=== PATIENT | male | born 1940 | race Caucasian/White ===

== ENCOUNTER 2016-11-28 13:39 | Emergency (ER) | payer MEDICARE ==
--- NOTE | 2016-12-03 19:07 | ER ---
ADMIT: 11/28/2016 [place]/LOC: [place] [facility] [place]#: [id number] [facility] [place], [place] [id number] BITA LANDEROS [address] [place] [id number] Emergency Room Report SEX: M AGE: 75 : 1940 DATE: 11/28/2016 HISTORY OF PRESENT ILLNESS: The patient is a 75-year-old male with past medical history of BPH, hypertension, anemia, diskitis, psoas abscess, who is taking daptomycin and meropenem at the moment through the PICC line, came to the ER with chief complaint of mildly increased altered mental status. Per family at bedside, the patient is more generally weak, and since the admission to the hospital and the ICU for the last few weeks, the patient was confused per family, but they believe in the last 2 to 3 days the confusion mildly increased. The patient was afebrile in the ER with temperature of 99.4, respiratory rate of 14, heart rate was 102, which decreased to 80 after the 5 minutes rechecking to 84, and blood pressure is 137/78, the patient was awake answering the question, cooperative, but is mildly confused, is oriented to person and situation, but is not oriented to time and place, I did not see any signs of trauma. The patient denied any fall, the patient's speech is not very understandable, but per family, he has been like this since admission to the hospital and ICU, and for the last few weeks, he has been like this. The patient moves all extremities and has no facial droop, the patient denies any pain, headaches, neck pain, neck stiffness, photophobia, visual changes, chest pain, shortness of breath, or abdominal pain. The patient has chronic back pain. PHYSICAL EXAMINATION: HEAD AND NECK: Conjunctivae are not pale, pupils are 3 mm, reactive to light bilaterally. Normal extraocular movements. NEUROLOGIC: Motor and sensory and cerebellar tests are grossly normal, and cranial nerves are also grossly normal. CHEST: Clear bilaterally. HEART: Normal heart sounds without any murmurs or gallops. ABDOMEN: Soft, nontender. EXTREMITIES: There is no swelling or tenderness. BACK: I checked the back looking for any tenderness in midline. I did not see any tenderness or fluctuations. GENITOURINARY: The patient also has no tenderness or swelling in the genitalia, testicles. Followup CT of the brain was negative for any acute changes, CBC showed white BC of 5.7 with hemoglobin of 9.6, ammonia level of 23, sodium was 139 with potassium of 3.9, creatinine was 0.9 with a glucose of 126. Urine was ADMIT: 11/28/2016 RM/LOC: [facility] MR#: [id number] [facility] [place] [id number] BITA LANDEROS [facility] [address] [place] [address] Emergency Room Report SEX: M AGE: 75 : 1940 positive for 32 wbc and 1 rbc, with the diagnosis of UTI, complicated, as the patient is male, has comorbidities and is already on 2 antibiotics daptomycin and meropenem, the patient was planned for admission. At this stage, I do not see the emergent urge to do the lumbar puncture knowing that the patient has no fever and no photophobia and no stiff neck, but it could be later on considered if the patient develops any new symptoms. The patient was started on ceftriaxone IV because I was not sure if the patient got dosage of antibiotics of today. The patient's family, they want the patient to be transferred to [place] and be followed up, and they are very happy of the care they had in [facility]. [facility] was contacted with a diagnosis of complicated UTI, chronic altered mental status. The patient was admitted to [facility] and was transferred there. Rebel Resendez MD/ carole JOB #: [id number] CC: Len Rosales MD, Attending Physician [facility] Physician, Family Physician
[2017-01-08] MEDS ORDERED: CALTRATE-600 W600 MG PO (11:07)
[2017-01-08] MEDS ORDERED: ASA CHILDREN'S81 MG PO (11:07)
[2017-01-08] MEDS ORDERED: COZAAR DPS50 MG PO (11:07)
[2017-01-08] MEDS ORDERED: FOLVITE-DPS1 MG PO (11:08)
[2017-01-08] MEDS ORDERED: DESYREL-DPS50 MG PO (11:08)
[2017-01-08] MEDS ORDERED: FEOSOL-DPS325 MG PO (11:08)
[2017-01-08] MEDS ORDERED: FLOMAX DPS0.4 MG PO (11:08)
[2017-01-08] MEDS ORDERED: KLOR-CON M2020 ME1 PO (11:08)
[2017-01-08] MEDS ORDERED: CULTURELLE1 CAP PO (11:08)
[2017-01-08] MEDS ORDERED: LOPRESSOR DPS50 MG PO (11:09)
[2017-01-08] MEDS ORDERED: MAALOX DPS30 ML PO ×2 (11:09→11:11)
[2017-01-08] MEDS ORDERED: NEURONTIN DPS300 MG PO (11:09)
[2017-01-08] MEDS ORDERED: PROSCAR DPS5 MG PO (11:09)
[2017-01-08] MEDS ORDERED: LIPITOR40 MG PO (11:09)
[2017-01-08] MEDS ORDERED: THERA-M1 EACH PO (11:09)
[2017-01-08] MEDS ORDERED: COLACE-DPS100 MG PO (11:10)
[2017-01-08] MEDS ORDERED: LOMOTIL-DPS1 TAB PO (11:10)
[2017-01-08] MEDS ORDERED: ALPHAGAN-P5 ML OU (11:10)
[2017-01-08] MEDS ORDERED: TYLENOL DPS325 MG PO (11:10)
[2017-01-08] MEDS ORDERED: APRESOLINE-DPS25 MG PO (11:10)
[2017-01-08] MEDS ORDERED: OXY IR DPS5 MG PO (11:11)
[2017-01-08] MEDS ORDERED: MILK OF MAGNESI10 ML PO (11:11)
[2017-01-08] MEDS ORDERED: MOTRIN-DPS600 MG PO (11:11)
[2017-01-08] MEDS ORDERED: DUONEB DPS3 ML IH (11:12)
[2017-01-08] MEDS ORDERED: SENOKOT DPS8.6 MG PO (11:12)
[2017-01-08] MEDS ORDERED: ULTRAM DPS50 MG PO (11:12)
== END 2016-11-28 18:30 ==
LOC: ER 13:39
PROC: 0T9B70Z Drainage of Bladder with Drainage Device, Via Natural or Artificial Opening (ICD-10-PCS; principal; 2016-11-28)
DX: N39.0 Urinary tract infection, site not specified (principal); I10 Essential (primary) hypertension; Z86.2 Personal history of diseases of the blood and blood-forming organs and certain disorders involving the immune mechanism